=== PATIENT | male | born 1960 | race Two or more races ===

== ENCOUNTER → 2020-04-04 | Emergency (ER) | payer OTHER ==
[~2020-04-04] VITALS: Ht 188 cm; Wt 68.0 kg
[~2020-04-04] MED LIST: ATIVAN1 M1; METFORMIN HCL500 M3; VASOTEC20 M1
== END | disposition left against medical advice (07) ==
LOC: ER 05:07
DX: F06.4 Anxiety disorder due to known physiological condition (principal); F19.930 Other psychoactive substance use, unspecified with withdrawal, uncomplicated

== ENCOUNTER → 2020-05-01 | Emergency (ER) | payer OTHER ==
[~2020-05-01] VITALS: Ht 172.7 cm; Wt 45.4 kg
== END | disposition designated cancer center or children's hospital (05) ==
LOC: ER 03:59
DX: S06.6X9A Traumatic subarachnoid hemorrhage with loss of consciousness of unspecified duration, initial encounter (principal); S01.321A Laceration with foreign body of right ear, initial encounter; S10.83XA Contusion of other specified part of neck, initial encounter; Y08.89XA Assault by other specified means, initial encounter; Y93.89 Activity, other specified; Y92.89 Other specified places as the place of occurrence of the external cause; Y99.8 Other external cause status; Z03.818 Encounter for observation for suspected exposure to other biological agents ruled out

== ENCOUNTER 2020-05-08 01:52 | Emergency (ER) | payer OTHER ==
[~2020-05-08] VITALS: Ht 188 cm; Wt 67.1 kg
[2020-05-08] MEDS ORDERED: DOLOGESIC-DF 51 EACH PO (05:38)
== END 2020-05-08 05:45 | disposition home or self-care (01) ==
LOC: ER 01:52
DX: S20.211A Contusion of right front wall of thorax, initial encounter (principal); Y08.89XA Assault by other specified means, initial encounter; Y93.89 Activity, other specified; Y92.89 Other specified places as the place of occurrence of the external cause; Y99.8 Other external cause status

== ENCOUNTER 2020-05-10 00:55 | Emergency (ER) | payer OTHER ==
[~2020-05-10] VITALS: Ht 188 cm; Wt 67.1 kg
[~2020-05-10 00:55] MED LIST changes: +DOLOGESIC-DF 51 EACH PO
== END 2020-05-10 03:05 | disposition home or self-care (01) ==
LOC: ER 00:55
DX: G44.89 Other headache syndrome (principal)

== ENCOUNTER 2020-05-16 02:29 | Emergency (ER) | payer OTHER ==
[~2020-05-16] VITALS: Ht 188 cm; Wt 67.1 kg
[2020-05-16] MEDS ORDERED: BUTALB-ACETAMI1 EAC2 PO (07:38)
== END 2020-05-16 08:05 | disposition home or self-care (01) ==
LOC: ER 02:29
DX: G44.89 Other headache syndrome (principal); Z03.818 Encounter for observation for suspected exposure to other biological agents ruled out